=== PATIENT | male | born 1950 | race Caucasian/White ===

== ENCOUNTER 2018-01-04 07:38 | Day surgery (SDC) | payer OTHER ==
[~2018-01-04 07:38] MED LIST: NS 1000 ML 1,000 ML ONE
[2018-01-04] MEDS ORDERED: TETRACAINE 0.5% OPHTH 1 DOSE AFFEYE ONE ×4 (08:15→11:26)
[2018-01-04] MEDS ORDERED: VIGAMOX 0.5% OPHTH 1 DOSE AFFEYE ONE ×6 (08:20→11:38)
[2018-01-04] MEDS ORDERED: PROLENSA OPHTH 1 DOSE AFFEYE ONE (08:31)
[2018-01-04] MEDS ORDERED: ALPHAGAN-P OPHTH 1 DOSE AFFEYE ONE (08:32)
[2018-01-04] MEDS ORDERED: CYCLOGYL 1% OPHTH 1 DOSE OP ONE ×3 (08:33→08:35)
[2018-01-04] MEDS ORDERED: MYDRIACIL OPHTH 1 DOSE AFFEYE ONE ×3 (08:33→08:35)
[2018-01-04] MEDS ORDERED: AK-DILATE 2.5% OPHTH 1 DOSE OP ONE ×3 (08:33→08:35)
[2018-01-04] MEDS ORDERED: ADRENALINE CHL INJ IJ ONE ×2 (11:16→11:26)
[2018-01-04] MEDS ORDERED: XYLOCAINE-MPF 1% IJ ONE ×2 (11:16→11:26)
[2018-01-04] MEDS ORDERED: BETADINE OPHTH SOLN 5% EACHEYE ONE (11:16)
[2018-01-04] MEDS ORDERED: DUOVISC IO ONE ×2 (11:16→11:26)
[2018-01-04] MEDS ORDERED: BSS OPHTH (PLAIN) 500 ML with VANCOMYCIN HCL 500 MG VIAL 25 MG, ADRENALINE CHL INJ 1 MG IR ONE ×6 (11:17)
[2018-01-04] MEDS ORDERED: VERSED ONE (13:47)
[2018-01-04 15:07] VITALS: BP 123/78
== END 2018-01-04 11:38 | disposition home or self-care (01) ==
LOC: SURG1 07:38
PROVIDERS: ATTEND Ophthalmology
PROC: 08DJ3ZZ Extraction of Right Lens, Percutaneous Approach (ICD-10-PCS; principal; 2018-01-04 11:45)
PROC: 08RJ3JZ Replacement of Right Lens with Synthetic Substitute, Percutaneous Approach (ICD-10-PCS; principal; 2018-01-04 11:45)
DX: H25.11 Age-related nuclear cataract, right eye (principal); H25.011 Cortical age-related cataract, right eye; H25.041 Posterior subcapsular polar age-related cataract, right eye
CPT/HCPCS: A4217; J0170; J2250; J3370

== ENCOUNTER 2018-01-18 09:28 | Day surgery (SDC) | payer OTHER ==
[~2018-01-18 09:28] MED LIST changes: -NS 1000 ML 1,000 ML ONE; +VERSED ONE
[2018-01-18] MEDS ORDERED: TETRACAINE 0.5% OPHTH 1 DOSE AFFEYE ONE ×4 (12:03→14:34)
[2018-01-18] MEDS ORDERED: VIGAMOX 0.5% OPHTH 1 DOSE AFFEYE ONE ×6 (12:05→14:51)
[2018-01-18] MEDS ORDERED: NS 500 ML IV 500 ML IV ONE (12:15)
[2018-01-18] MEDS ORDERED: PROLENSA OPHTH 1 DOSE AFFEYE ONE (12:17)
[2018-01-18] MEDS ORDERED: ALPHAGAN-P OPHTH 1 DOSE AFFEYE ONE (12:18)
[2018-01-18] MEDS ORDERED: CYCLOGYL 1% OPHTH 1 DOSE OP ONE ×4 (12:20→12:30)
[2018-01-18] MEDS ORDERED: MYDRIACIL OPHTH 1 DOSE AFFEYE ONE ×4 (12:20→12:30)
[2018-01-18] MEDS ORDERED: AK-DILATE 2.5% OPHTH 1 DOSE OP ONE ×4 (12:20→12:30)
[2018-01-18] MEDS ORDERED: BETADINE OPHTH SOLN 5% EACHEYE ONE (14:25)
[2018-01-18] MEDS ORDERED: ADRENALINE CHL INJ IJ ONE ×2 (14:28→14:34)
[2018-01-18] MEDS ORDERED: XYLOCAINE-MPF 1% IJ ONE ×2 (14:28→14:34)
[2018-01-18] MEDS ORDERED: DUOVISC IO ONE ×2 (14:28→14:34)
[2018-01-18] MEDS ORDERED: BSS OPHTH (PLAIN) 500 ML with VANCOMYCIN HCL 500 MG VIAL 25 MG, ADRENALINE CHL INJ 1 MG IR ONE ×6 (14:29)
[2018-01-18 16:51] VITALS: BP 128/80
== END 2018-01-18 15:15 | disposition home or self-care (01) ==
LOC: SURG1 09:28
PROVIDERS: ATTEND Ophthalmology
PROC: 08RK3JZ Replacement of Left Lens with Synthetic Substitute, Percutaneous Approach (ICD-10-PCS; principal; 2018-01-18 18:45)
PROC: 08DK3ZZ Extraction of Left Lens, Percutaneous Approach (ICD-10-PCS; principal; 2018-01-18 18:45)
DX: H25.12 Age-related nuclear cataract, left eye (principal); H25.012 Cortical age-related cataract, left eye; H25.042 Posterior subcapsular polar age-related cataract, left eye
CPT/HCPCS: A4217; J0170; J2250; J3370

== ENCOUNTER 2022-04-03 09:01 | Inpatient (IN) ==
[2022-04-03] MEDS: DILAUDID INJ IVP PRN ×4 (11:03→21:00)
[2022-04-03] MEDS: LR 1,000 ML IV 1,000 ML IV SCH ×3 (11:03→19:04)
[2022-04-03] MEDS: ZOFRAN INJ 4 MG VIAL IVP PRN ×2 (11:04→18:09)
[2022-04-03 11:21] VITALS: BMI 30.7
--- NOTE | 2022-04-03 14:43 | DR.H&P ---
H&P History & Physical for Day of: H&P Date: 04/03/22 Chief Complaint Chief Complaint: Abdominal pain, nausea and vomiting Allergies Allergies Allergy/AdvReac Type Severity Reaction Status Date / Time No Known Drug Allergies Allergy Verified 01/04/18 08:55 History of Present Illness History of Present Illness: 71 year old man who presented to the emergency room in [facility] complaining of abdominal pain, nausea and vomiting. He was evaluated there laboratory values of amylase greater than 3300, lipase greater than 8000 , and CT scan of the abdomen consistent with cholelithiasis and pancreatitis ( i.e. gallstone pancreatitis) with total bilirubin elevated at 2.6, Alk. phos of 207 and BUN/Cr =33/2.5. Past Medical History Past Medical History: Gout and Hypertension Additional Medical History: neuropathy of LE. Family History Family Medical History: Diabetes Mellitus, Cancer, [place] and Hypertension Social History Does patient currently use any type of tobacco product: No Have you used tobacco products in the last 12 months: No Type of Tobacco Use: None Does any household member use tobacco: No Alcohol Use: None Drug Use: None Medications Home Medications: No Known Drug Allergies Allergy (Verified 01/04/18 08:55) CONTINUE taking the following medications allopurinol 300 mg tablet 300 mg PO DAILY 04/03/22 [History] alprazolam 0.25 mg tablet 0.25 mg PO TID 04/03/22 [History] amlodipine 5 mg tablet 5 mg PO DAILY 04/03/22 [History] citalopram 20 mg tablet 30 mg PO DAILY 04/03/22 [History] fenofibrate 160 mg tablet 160 mg PO HS 04/03/22 [History] finasteride 5 mg tablet 5 mg PO DAILY 04/03/22 [History] gabapentin 600 mg tablet 600 mg PO BID 04/03/22 [History] primidone 250 mg tablet 250 mg PO TID 04/03/22 [History] tizanidine 4 mg tablet 4 mg PO BID 04/03/22 [History] Labs Labs: K+= 3.2 BUN/Cr= 33/2.5.Amylase= 3305, Lipase > 8000, T.bili= 2.4, , Alk Phos= 207 (N) , Hgb=18,7 WBC=15.5 Review of Systems Constitutional: See HPI Eyes: No Symptoms Reported ENT: No Symptoms Reported Respiratory: No Symptoms Reported Cardiovascular: No Symptoms Reported Gastrointestinal: See HPI Genitourinary: No Symptoms Reported Musculoskeletal: No Symptoms Reported Skin: No Symptoms Reported Neurological: No Symptoms Reported Physical Exam Vital Signs: Pulse Rate 96 Respiratory Rate 21 Blood Pressure 128/80 O2 Sat by Pulse Oximetry 93 Oriented: Other (Patient arrived in significant pain and now sedated after receiving IV Dialudid, Reported by yuniely to previously being awake, alert and oriented to time , person and place.) Eyes: Normal Ear: negative Normal ( Overall decreased hearing both eyes) Nose: Normal Throat: Normal Respiratory: Clear Throughout Cardiovascular: Normal : Other (urine dark, this and labs consitent with dehydration and sequestion of fluid. ) Assessment/Plan (1) Acute gallstone pancreatitis: Narrative Support Text: Hydration, pain control, routine labs to include CMP< CBC, Amylase, Lipase. Patient will need to have resolution of the gallstone pancreatitis and then will plan laproscopic cholecystectomy and cholangiogram Status: Acute (2) Gout: Narrative Support Text: usual meds Status: Acute (3) Hypertension: Narrative Support Text: Will start antihypertensives except HCTZ and he is significantly volume depleted . Status: Acute (4) Neuropathy: Narrative Support Text: acknowledge Status: Acute (5) Profound hearing loss: Narrative Support Text: acknowledge Status: Acute Review H&P Reviewed: Yes Patient was examined?: Yes
[2022-04-03] MEDS ORDERED: XANAX PO PRN (16:55)
[2022-04-03] MEDS ORDERED: ZOFRAN INJ 4 MG VIAL IVP PRN (16:58)
[2022-04-03] MEDS ORDERED: ANTIVERT TAB 25 MG PO PRN (16:58)
[2022-04-03] MEDS ORDERED: NS 1,000 ML IV 1,000 ML IV ONE ×2 (17:41→22:21)
[2022-04-03] MEDS: ZANAFLEX PO SCH (21:00)
[2022-04-03 21:12] LABS: BILIRUBIN,URINE 3+ (NEGATIVE); BLOOD/HEMOGLOBIN,URINE 4+ (NEGATIVE); GLUCOSE, URINE NEGATIVE (NEGATIVE); KETONES,URINE 1+ (NEGATIVE); LEUKOCYTE ESTERASE ,URINE 1+ (NEGATIVE); NITRITES,URINE NEGATIVE (NEGATIVE); PROTEIN,URINE 3+ (NEGATIVE); UROBILINOGEN,URINE 2+ (NORMAL)
[2022-04-03 21:26] LABS: COLOR,URINE AMBER (YELLOW)
[2022-04-03 21:27] LABS: APPEARANCE,URINE HAZY (CLEAR)
[2022-04-03 21:28] LABS: BACTERIA,URINE 2+ /HPF (NEGATIVE); COARSE GRANULAR CASTS,URINE MODERATE /HPF (NEGATIVE); SQUAMOUS EPITHELIAL CELL,UR RARE /HPF (NEGATIVE); TRANSITIONAL EPI CELLS,URINE MODERATE /HPF (NEGATIVE)
[2022-04-03] MEDS: NEURONTIN TAB 600 MG PO SCH (21:28)
[2022-04-03 21:29] LABS: OTHER CASTS, URINE FEW /LPF (NEGATIVE)
[2022-04-03] MEDS ORDERED: DILAUDID INJ IM ONE (22:21)
[2022-04-03] MEDS ORDERED: NS 1,000 ML IV 1,000 ML ONE (22:25)
[2022-04-03] MEDS ORDERED: DILAUDID INJ IVP ONE (22:34)
[2022-04-03] MEDS ORDERED: CARDIZEM INJ 50 MG VIAL IVP ONE (23:59)
[2022-04-04] MEDS ORDERED: DILTIAZEM 125mg/125mL-0.7%NACL 125 MG/125 ML PLAST..BAG IV PRN (00:01)
[2022-04-04] MEDS: DILAUDID INJ IVP PRN ×2 (00:55→03:55)
[2022-04-04 04:33] LABS: BASOPHILS % (AUTO) 0.1 % (0.2-1.0); EOSINOPHILS % (AUTO) 0.1 % (0.9-2.9); HEMATOCRIT 55.5 % (42.0-54.0); HEMOGLOBIN 18.7 g/dL (13.5-18.0); LYMPHOCYTES # (AUTO) 0.8 X10^3/uL (1.3-2.9); LYMPHOCYTES % (AUTO) 5.8 % (21.0-51.0); MEAN CORPUSCULAR HEMOGLOBIN 31.9 pg (27.0-34.0); MEAN CORPUSCULAR HGB CONC 33.7 g/dL (33.0-35.0); MEAN CORPUSCULAR VOLUME 94.8 fL (80.0-100.0); MEAN PLATELET VOLUME 9.5 fL (7.4-11.0); MONOCYTES # (AUTO) 1.4 x10^3/uL (0.3-0.8); MONOCYTES % (AUTO) 10.1 % (0.0-13.0); NEUTROPHILS # (AUTO) 11.5 x10^3/uL (2.2-4.8); NEUTROPHILS % (AUTO) 83.9 % (42.0-75.0); RED BLOOD COUNT 5.85 X10^6/uL (4.7-6.0); RED CELL DISTRIBUTION WIDTH 14.7 % (11.6-16.5); WHITE BLOOD COUNT 13.7 X10^3/uL (3.6-10.0)
[2022-04-04 05:12] LABS: ALBUMIN 2.7 g/dL (3.4-5.0); CALCIUM 7.7 mg/dL (8.5-10.1); CARBON DIOXIDE 17.4 mmol/L (21-32); COR CA(FOR HYPOALB) 8.7 mg/dL (8.5-10.1); CREATININE 4.51 mg/dL (0.70-1.30)
[2022-04-04] MEDS: LR 1,000 ML IV 1,000 ML IV SCH (05:29)
[2022-04-04 05:52] LABS: BAND NEUTROPHILS % 19 % (0-10); METAMYELOCYTES % 2; PLATELET MORPHOLOGY COMMENT NORMAL (NORMAL)
[2022-04-04] MEDS: NEURONTIN TAB 600 MG PO SCH ×2 (06:29→14:26)
[2022-04-04] MEDS ORDERED: NS 1,000 ML IV 1,000 ML IV ONE ×3 (06:35→11:01)
[2022-04-04] MEDS ORDERED: NS 1,000 ML IV 1,000 ML ONE ×2 (06:38→08:13)
[2022-04-04 06:40] LABS: ABG BASE EXCESS -16.7 mmol/L (-2.0-2.0)
[2022-04-04 06:41] LABS: ABG HCO3 14.8 mmol/L (22-26)
[2022-04-04 06:42] LABS: ABG ALLEN TEST POS
[2022-04-04] MEDS ORDERED: ROMAZICON INJ 1 MG IVP ONE (06:58)
[2022-04-04] MEDS ORDERED: NARCAN INJ IVP ONE (06:58)
[2022-04-04] MEDS ORDERED: ROMAZICON INJ 1 MG ONE (07:00)
[2022-04-04] MEDS ORDERED: NARCAN INJ ONE (07:01)
[2022-04-04 07:23] LABS: CKMB % 1.4 % (<4); CREATINE KINASE MB 5.7 ng/mL (0-4.0)
[2022-04-04] MEDS ORDERED: ATIVAN INJ 2 MG VIAL IVP ONE (08:04)
[2022-04-04] MEDS ORDERED: SODIUM BICARBONATE 8.4% INJ ADULT IVP ONE ×3 (08:05→13:17)
[2022-04-04] MEDS ORDERED: DOPAMINE IV PREMIX 400 MG/250 ML 400 MG/250 ML BAG IV PRN (08:05)
[2022-04-04] MEDS ORDERED: SODIUM BICARBONATE 8.4% INJ ADULT ONE ×2 (08:14→09:39)
[2022-04-04] MEDS ORDERED: NS 250 ML IV 250 ML IV ONE ×3 (08:16→18:47)
[2022-04-04] MEDS ORDERED: NORVASC TAB 5 MG PO SCH (09:00)
[2022-04-04] MEDS ORDERED: ZYLOPRIM PO SCH (09:00)
[2022-04-04] MEDS ORDERED: LOVENOX INJ 40 MG SYR SC SCH (09:00)
[2022-04-04] MEDS ORDERED: TRICOR TAB 145 MG PO SCH (09:00)
[2022-04-04] MEDS ORDERED: CELEXA PO SCH (09:00)
[2022-04-04] MEDS ORDERED: MOBIC TAB 15 MG PO SCH (09:00)
[2022-04-04] MEDS ORDERED: LOVENOX INJ 30 MG SYR SC SCH (09:00)
[2022-04-04] MEDS ORDERED: ZESTRIL TAB 20 MG PO SCH (09:00)
[2022-04-04] MEDS ORDERED: PROSCAR PO SCH (09:00)
[2022-04-04 09:15] LABS: ABG BASE EXCESS -15.2 mmol/L (-2.0-2.0)
[2022-04-04 09:16] LABS: ABG HCO3 14.3 mmol/L (22-26)
[2022-04-04] MEDS: ZANAFLEX PO SCH (10:22)
[2022-04-04] MEDS ORDERED: NS 1,000 ML IV 1,000 ML IV SCH (12:00)
--- NOTE | 2022-04-04 12:04 | RAD ---
HISTORYTachypnea hypertensionSTUDYAP [id number] nt transverse cardiac diameter, accentuated by nonstandard technical factors, elevated diaphragm and low lung volumes. Mild bibasal atelectasis. There is no evidence for pneumonia, pneumothorax or pleural fluid.IMPRESSIONStable cardiac prominence with bibasal linear pulmonary densities consistent with atelectasis, accentuated by pulmonary underinflation.Electronically signed by: KATIE KIMBALL (Apr 04, 2022 12:03:07)
[2022-04-04 13:09] LABS: ABG BASE EXCESS -12.7 mmol/L (-2.0-2.0)
[2022-04-04 13:10] LABS: ABG HCO3 16.3 mmol/L (22-26)
[2022-04-04] MEDS ORDERED: ALBUMIN HUMAN 25%- 100 ML 100 ML IV ONE (13:17)
[2022-04-04] MEDS ORDERED: LASIX IVP ONE (13:18)
[2022-04-04] MEDS ORDERED: ALBUMIN HUMAN 25%- 100 ML 100 ML ONE (13:54)
[2022-04-04] MEDS ORDERED: ALBUMIN HUMAN 25%- 100 ML 200 ML IV ONE (13:57)
[2022-04-04] MEDS ORDERED: DIPRIVAN VIAL ONE (16:45)
[2022-04-04] MEDS ORDERED: VERSED ONE (16:45)
[2022-04-04] MEDS ORDERED: KETAMINE HCL ONE (16:45)
[2022-04-04] MEDS ORDERED: ZOSYN VIAL 2.25 GRAMS 2.25 G in NS 100 ML IV 100 ML IV SCH (17:00)
[2022-04-04] MEDS ORDERED: DIPRIVAN PREMIX 1 GRAM IV 1,000 MG/100 ML VIAL IV PRN (17:10)
--- NOTE | 2022-04-04 17:16 | NOTE.SOAP ---
Soap Note Note for Day of Date of Exam: 04/04/22 Subjective Data Subjective Data: Since admission for gallstone pancreatitis he has required significant pain medication. He had transient atrial fibrillation with rapid ventricular rate which resolved spontaneously . Despite significant intravenous hydration his kidneys have not been functioning and creatinine has risen greater than 4. 5. Amylase [place] is [place] [address] have conitinued to rise . Total bilirubin was 2. 4 and is now 9. 4 . Early this morning he had been given IV pain medication and had hypoventilation with subsequent blood gas consistent with both respiratory acidosis and metabolic acidosis. That is somwhat better after placing on BiPAP, decreasing his pain medications, reversing them as necessary and giving him sodium bicarbonate intravenously. He continues to be t achypnic with no urine output. I have made arrangements to transfer him to [facility] in [place] . His accepting physicain is Dr. Trey Dozier. He will be electively intubated prior to transport . Objective Data Pulse Rate: 98 Respiratory Rate: 52 Blood Pressure: 94/59 O2 Sat by Pulse Oximetry: 94 Objective Data: tachypnic, unresponsive, abdomen distended but not tender ,hemoglobin equals 18. 7 , creatinine equals 4. 5 , potassium equals 5. 1 ,white blood cell count [id number] Assessment Assessment: Gallstone pancreatitis with respiratory and renal failure. Plan Plan: Patietn to be intubated and transported to higher level of care in [facility] . Accepting physician is Dr. Trey Dozier.
--- NOTE | 2022-04-04 17:29 | W.DIS.FURT ---
Summary of Discharge Discharge Summary of Date Date of Exam: 04/04/22 Admission Date Date of Admission: 04/03/22 Admission Diagnosis Hospital Course: This patient is a 71 year old male who began having abdominal pain approximately 5 days prior to admission. He is known to have gallstones. He was seen locally at the hospital in [facility] and was diagnosed with gallstone pancreatitis. At that time his total bilirubin was 2. 4, Amylase 3306 and lipase greater than 8000. He was admitted to my service in [facility] and despite significant intravenous hydration has continued to deteriorate now with evidence of renal failure and respiratory failure. He had transient atrial fibrillation with rapid ventricular response which resolved spontaneously . His troponin is elevated but the sensitivity of the new test in this regard is suspect. He will require a higher level of care and will be transported by ambulance to [facility] in [facility]. The accepting county bailiff is Dr. Trey Dozier. He will be electively in tubated . Currently on renal dose dopamine and has been started on IV zosyn Vital Signs: Vital Signs (72 hours) 04/04/22 17:16 04/03/22 11:03 04/03/22 10:25 Temperature Pulse Rate 98 H Respiratory Rate 52 H 18 Blood Pressure 94/59 O2 Sat by Pulse Oximetry 94 L Oxygen Delivery Method Nasal Cannula Oxygen Flow Rate 2 FIO2% 04/03/22 11:16 04/03/22 11:33 04/03/22 11:30 Temperature 98 F Pulse Rate 99 H 100 H Respiratory Rate 19 18 18 Blood Pressure O2 Sat by Pulse Oximetry 96 96 Oxygen Delivery Method Oxygen Flow Rate FIO2% 04/03/22 11:45 04/03/22 12:00 04/03/22 12:15 Temperature 98.3 F Pulse Rate 101 H 100 H 100 H Respiratory Rate 18 18 17 Blood Pressure O2 Sat by Pulse Oximetry 96 96 96 Oxygen Delivery Method Oxygen Flow Rate FIO2% 04/03/22 12:30 04/03/22 12:45 04/03/22 13:00 Temperature Pulse Rate 97 H 97 H 97 H Respiratory Rate 25 H 19 34 H Blood Pressure O2 Sat by Pulse Oximetry 96 96 96 Oxygen Delivery Method Oxygen Flow Rate FIO2% 04/03/22 13:15 04/03/22 10:20 04/03/22 13:30 Temperature Pulse Rate 98 H 97 H Respiratory Rate 20 32 H Blood Pressure O2 Sat by Pulse Oximetry 96 96 Oxygen Delivery Method Nasal Cannula Oxygen Flow Rate 3 FIO2% 32 04/03/22 13:45 04/03/22 14:00 04/03/22 15:10 Temperature Pulse Rate 96 H 96 H Respiratory Rate 25 H 21 18 Blood Pressure O2 Sat by Pulse Oximetry 96 93 L Oxygen Delivery Method Oxygen Flow Rate FIO2% 04/03/22 14:15 04/03/22 14:30 04/03/22 14:45 Temperature Pulse Rate 94 H 97 H 97 H Respiratory Rate 20 21 19 Blood Pressure O2 Sat by Pulse Oximetry 93 L 94 L 93 L Oxygen Delivery Method Oxygen Flow Rate FIO2% 04/03/22 14:56 04/03/22 14:56 04/03/22 15:00 Temperature Pulse Rate 101 H Respiratory Rate 29 H Blood Pressure 137/87 130/68 O2 Sat by Pulse Oximetry 92 L Oxygen Delivery Method Oxygen Flow Rate FIO2% 04/03/22 15:00 04/03/22 15:15 04/03/22 15:30 Temperature Pulse Rate 100 H 97 H 98 H Respiratory Rate 28 H 19 20 Blood Pressure O2 Sat by Pulse Oximetry 100 91 L 92 L Oxygen Delivery Method Oxygen Flow Rate FIO2% 04/03/22 15:45 04/03/22 16:00 04/03/22 16:00 Temperature 98.9 F Pulse Rate 97 H 97 H Respiratory Rate 16 17 Blood Pressure 129/71 O2 Sat by Pulse Oximetry 92 L 91 L Oxygen Delivery Method Oxygen Flow Rate FIO2% 04/03/22 16:15 04/03/22 16:30 04/03/22 16:45 Temperature Pulse Rate 97 H 97 H 96 H Respiratory Rate 17 19 20 Blood Pressure O2 Sat by Pulse Oximetry 91 L 91 L 93 L Oxygen Delivery Method Oxygen Flow Rate FIO2% 04/03/22 17:00 04/03/22 17:00 04/03/22 18:08 Temperature Pulse Rate 97 H Respiratory Rate 20 18 Blood Pressure 118/70 O2 Sat by Pulse Oximetry 94 L Oxygen Delivery Method Oxygen Flow Rate FIO2% 04/03/22 15:40 04/03/22 17:15 04/03/22 17:30 Temperature Pulse Rate 97 H 98 H Respiratory Rate 18 20 28 H Blood Pressure O2 Sat by Pulse Oximetry 95 95 Oxygen Delivery Method Oxygen Flow Rate FIO2% 04/03/22 17:45 04/03/22 18:00 04/03/22 18:00 Temperature Pulse Rate 99 H 103 H Respiratory Rate 33 H 31 H Blood Pressure 105/60 O2 Sat by Pulse Oximetry 94 L 94 L Oxygen Delivery Method Oxygen Flow Rate FIO2% 04/03/22 18:38 04/03/22 20:53 04/03/22 21:00 Temperature Pulse Rate Respiratory Rate 18 20 Blood Pressure O2 Sat by Pulse Oximetry Oxygen Delivery Method Nasal Cannula Oxygen Flow Rate 3 FIO2% 32 04/03/22 22:36 04/03/22 19:00 04/03/22 19:00 Temperature Pulse Rate 97 H Respiratory Rate 20 18 Blood Pressure 138/83 O2 Sat by Pulse Oximetry 92 L Oxygen Delivery Method Nasal Cannula Oxygen Flow Rate 2 FIO2% 04/03/22 20:00 04/03/22 21:00 04/03/22 22:00 Temperature 97.7 F Pulse Rate 99 H 106 H 145 H Respiratory Rate 18 34 H 31 H Blood Pressure 124/84 145/72 116/84 O2 Sat by Pulse Oximetry 94 L 93 L 86 L Oxygen Delivery Method Oxygen Flow Rate FIO2% 04/03/22 23:00 04/03/22 21:30 04/03/22 23:06 Temperature Pulse Rate 159 H Respiratory Rate 22 20 20 Blood Pressure 114/69 O2 Sat by Pulse Oximetry 93 L Oxygen Delivery Method Oxygen Flow Rate FIO2% 04/04/22 00:55 04/04/22 00:00 04/04/22 01:00 Temperature 98.0 F Pulse Rate 166 H 100 H Respiratory Rate 20 24 30 H Blood Pressure 123/88 124/69 O2 Sat by Pulse Oximetry 93 L 90 L Oxygen Delivery Method Oxygen Flow Rate FIO2% 04/04/22 02:00 04/04/22 03:00 04/04/22 01:25 Temperature Pulse Rate 104 H 106 H Respiratory Rate 40 H 27 H 24 Blood Pressure 123/87 97/56 O2 Sat by Pulse Oximetry 90 L 88 L Oxygen Delivery Method Oxygen Flow Rate FIO2% 04/04/22 03:55 04/04/22 05:19 04/04/22 04:00 Temperature 98.1 F Pulse Rate 109 H Respiratory Rate 24 34 H Blood Pressure 109/80 O2 Sat by Pulse Oximetry 85 L Oxygen Delivery Method Oxy Mask Oxygen Flow Rate 10 FIO2% 60 04/04/22 05:00 04/04/22 04:25 04/04/22 06:55 Temperature Pulse Rate 107 H Respiratory Rate 24 20 Blood Pressure 81/50 O2 Sat by Pulse Oximetry 96 Oxygen Delivery Method Oxy Mask Oxygen Flow Rate 12 FIO2% 60 04/04/22 06:57 04/04/22 06:00 04/04/22 07:00 Temperature Pulse Rate 103 H Respiratory Rate 24 Blood Pressure 87/51 O2 Sat by Pulse Oximetry 95 Oxygen Delivery Method Bi-pap Oxy Mask Oxy Mask Oxygen Flow Rate 10 10 FIO2% 60 04/04/22 08:32 04/04/22 08:32 04/04/22 07:00 Temperature Pulse Rate 102 H Respiratory Rate 24 Blood Pressure O2 Sat by Pulse Oximetry 96 Oxygen Delivery Method Bi-pap Oxygen Flow Rate FIO2% 60 60 04/04/22 07:14 04/04/22 07:14 04/04/22 07:15 Temperature Pulse Rate 100 H 100 H Respiratory Rate 45 H 47 H Blood Pressure 159/63 O2 Sat by Pulse Oximetry 97 96 Oxygen Delivery Method Oxygen Flow Rate FIO2% 04/04/22 07:16 04/04/22 07:16 04/04/22 07:21 Temperature Pulse Rate 100 H 99 H Respiratory Rate 46 H 45 H Blood Pressure 114/58 O2 Sat by Pulse Oximetry 96 96 Oxygen Delivery Method Oxygen Flow Rate FIO2% 04/04/22 07:21 04/04/22 07:30 04/04/22 07:30 Temperature Pulse Rate 96 H Respiratory Rate 45 H Blood Pressure 99/61 106/59 O2 Sat by Pulse Oximetry 96 Oxygen Delivery Method Oxygen Flow Rate FIO2% 04/04/22 07:40 04/04/22 07:40 04/04/22 07:45 Temperature Pulse Rate 96 H 96 H Respiratory Rate 47 H 49 H Blood Pressure 104/57 O2 Sat by Pulse Oximetry 96 98 Oxygen Delivery Method Oxygen Flow Rate FIO2% 04/04/22 07:50 04/04/22 07:50 04/04/22 08:00 Temperature Pulse Rate 96 H Respiratory Rate 49 H Blood Pressure 103/60 97/61 O2 Sat by Pulse Oximetry 99 Oxygen Delivery Method Oxygen Flow Rate FIO2% 04/04/22 08:00 04/04/22 08:10 04/04/22 08:10 Temperature 99.0 F Pulse Rate 97 H 97 H Respiratory Rate 48 H 49 H Blood Pressure 100/61 O2 Sat by Pulse Oximetry 99 97 Oxygen Delivery Method Oxygen Flow Rate FIO2% 04/04/22 08:15 04/04/22 08:20 04/04/22 08:20 Temperature Pulse Rate 97 H 96 H Respiratory Rate 48 H 49 H Blood Pressure 85/57 O2 Sat by Pulse Oximetry 97 98 Oxygen Delivery Method Oxygen Flow Rate FIO2% 04/04/22 08:30 04/04/22 08:30 04/04/22 08:40 Temperature Pulse Rate 99 H 99 H Respiratory Rate 48 H 46 H Blood Pressure 103/59 O2 Sat by Pulse Oximetry 97 95 Oxygen Delivery Method Oxygen Flow Rate FIO2% 04/04/22 08:40 04/04/22 08:45 04/04/22 08:50 Temperature Pulse Rate 100 H Respiratory Rate 48 H Blood Pressure 101/59 119/59 O2 Sat by Pulse Oximetry 96 Oxygen Delivery Method Oxygen Flow Rate FIO2% 04/04/22 08:50 04/04/22 08:59 04/04/22 09:00 Temperature Pulse Rate 100 H 100 H Respiratory Rate 47 H 44 H Blood Pressure 112/56 O2 Sat by Pulse Oximetry 93 L 95 Oxygen Delivery Method Oxygen Flow Rate FIO2% 04/04/22 09:00 04/04/22 09:10 04/04/22 09:10 Temperature Pulse Rate 100 H 100 H Respiratory Rate 49 H 48 H Blood Pressure 113/56 O2 Sat by Pulse Oximetry 95 94 L Oxygen Delivery Method Oxygen Flow Rate FIO2% 04/04/22 09:15 04/04/22 09:20 04/04/22 09:20 Temperature Pulse Rate 99 H 99 H Respiratory Rate 41 H 48 H Blood Pressure 115/56 O2 Sat by Pulse Oximetry 95 96 Oxygen Delivery Method Oxygen Flow Rate FIO2% 04/04/22 09:30 04/04/22 09:30 04/04/22 09:40 Temperature Pulse Rate 100 H Respiratory Rate 50 H Blood Pressure 116/60 101/57 O2 Sat by Pulse Oximetry 96 Oxygen Delivery Method Oxygen Flow Rate FIO2% 04/04/22 09:40 04/04/22 09:45 04/04/22 09:50 Temperature Pulse Rate 101 H 101 H Respiratory Rate 47 H 49 H Blood Pressure 124/61 O2 Sat by Pulse Oximetry 95 95 Oxygen Delivery Method Oxygen Flow Rate FIO2% 04/04/22 09:50 04/04/22 10:00 04/04/22 10:00 Temperature Pulse Rate 101 H 101 H Respiratory Rate 46 H 50 H Blood Pressure 108/58 O2 Sat by Pulse Oximetry 93 L 96 Oxygen Delivery Method Oxygen Flow Rate FIO2% 04/04/22 10:10 04/04/22 10:10 04/04/22 10:15 Temperature Pulse Rate 101 H 101 H Respiratory Rate 50 H 46 H Blood Pressure 96/65 O2 Sat by Pulse Oximetry 94 L 95 Oxygen Delivery Method Oxygen Flow Rate FIO2% 04/04/22 10:20 04/04/22 10:20 04/04/22 10:30 Temperature Pulse Rate 101 H 103 H Respiratory Rate 51 H 51 H Blood Pressure 93/59 O2 Sat by Pulse Oximetry 94 L 95 Oxygen Delivery Method Oxygen Flow Rate FIO2% 04/04/22 10:31 04/04/22 10:31 04/04/22 10:40 Temperature Pulse Rate 102 H Respiratory Rate 45 H Blood Pressure 112/58 90/52 O2 Sat by Pulse Oximetry 97 Oxygen Delivery Method Oxygen Flow Rate FIO2% 04/04/22 10:40 04/04/22 10:45 04/04/22 10:50 Temperature Pulse Rate 103 H 102 H Respiratory Rate 48 H 50 H Blood Pressure 90/53 O2 Sat by Pulse Oximetry 95 94 L Oxygen Delivery Method Oxygen Flow Rate FIO2% 04/04/22 10:50 04/04/22 11:00 04/04/22 11:00 Temperature Pulse Rate 103 H 103 H Respiratory Rate 47 H 46 H Blood Pressure 95/56 O2 Sat by Pulse Oximetry 94 L 94 L Oxygen Delivery Method Bi-pap Oxygen Flow Rate FIO2% 04/04/22 11:10 04/04/22 11:10 04/04/22 11:15 Temperature Pulse Rate 101 H 101 H Respiratory Rate 50 H 47 H Blood Pressure 96/57 O2 Sat by Pulse Oximetry 93 L 96 Oxygen Delivery Method Oxygen Flow Rate FIO2% 04/04/22 11:20 04/04/22 11:20 04/04/22 11:30 Temperature Pulse Rate 100 H Respiratory Rate 48 H Blood Pressure 97/60 100/59 O2 Sat by Pulse Oximetry 94 L Oxygen Delivery Method Oxygen Flow Rate FIO2% 04/04/22 11:30 04/04/22 11:40 04/04/22 11:40 Temperature Pulse Rate 100 H 98 H Respiratory Rate 49 H 46 H Blood Pressure 92/64 O2 Sat by Pulse Oximetry 94 L 95 Oxygen Delivery Method Oxygen Flow Rate FIO2% 04/04/22 11:45 04/04/22 11:50 04/04/22 11:50 Temperature Pulse Rate 97 H 98 H Respiratory Rate 48 H 49 H Blood Pressure 95/63 O2 Sat by Pulse Oximetry 95 95 Oxygen Delivery Method Oxygen Flow Rate FIO2% 04/04/22 12:00 04/04/22 12:00 04/04/22 12:10 Temperature 99.4 F Pulse Rate 99 H 98 H Respiratory Rate 46 H 49 H Blood Pressure 97/64 O2 Sat by Pulse Oximetry 95 94 L Oxygen Delivery Method Bi-pap Oxygen Flow Rate FIO2% 75 04/04/22 12:10 04/04/22 12:15 04/04/22 12:20 Temperature Pulse Rate 98 H 100 H Respiratory Rate 45 H 47 H Blood Pressure 97/55 O2 Sat by Pulse Oximetry 97 94 L Oxygen Delivery Method Oxygen Flow Rate FIO2% 04/04/22 12:20 04/04/22 12:30 04/04/22 12:30 Temperature Pulse Rate 98 H Respiratory Rate 47 H Blood Pressure 92/60 90/56 O2 Sat by Pulse Oximetry 95 Oxygen Delivery Method Oxygen Flow Rate FIO2% 04/04/22 12:39 04/04/22 12:40 04/04/22 13:30 Temperature Pulse Rate 97 H Respiratory Rate 46 H Blood Pressure 96/58 O2 Sat by Pulse Oximetry 95 Oxygen Delivery Method Oxygen Flow Rate FIO2% 100 04/04/22 12:40 04/04/22 12:45 04/04/22 12:50 Temperature Pulse Rate 97 H 98 H 97 H Respiratory Rate 44 H 45 H 44 H Blood Pressure O2 Sat by Pulse Oximetry 95 95 95 Oxygen Delivery Method Oxygen Flow Rate FIO2% 04/04/22 12:50 04/04/22 13:00 04/04/22 13:06 Temperature Pulse Rate 98 H Respiratory Rate 48 H Blood Pressure 97/55 67/38 O2 Sat by Pulse Oximetry 94 L Oxygen Delivery Method Bi-pap Oxygen Flow Rate FIO2% 75 04/04/22 13:06 04/04/22 13:10 04/04/22 13:10 Temperature Pulse Rate 97 H 97 H Respiratory Rate 43 H 45 H Blood Pressure 91/52 O2 Sat by Pulse Oximetry 94 L 95 Oxygen Delivery Method Oxygen Flow Rate FIO2% 04/04/22 13:15 04/04/22 13:15 04/04/22 13:30 Temperature Pulse Rate 97 H Respiratory Rate 43 H Blood Pressure 82/51 81/55 O2 Sat by Pulse Oximetry 96 Oxygen Delivery Method Oxygen Flow Rate FIO2% 04/04/22 13:30 04/04/22 13:45 04/04/22 14:00 Temperature Pulse Rate 97 H 99 H 99 H Respiratory Rate 43 H 51 H 44 H Blood Pressure O2 Sat by Pulse Oximetry 97 91 L 92 L Oxygen Delivery Method Bi-pap Oxygen Flow Rate FIO2% 100 04/04/22 14:07 04/04/22 14:07 04/04/22 14:15 Temperature Pulse Rate 96 H Respiratory Rate 43 H Blood Pressure 82/52 88/52 O2 Sat by Pulse Oximetry 93 L Oxygen Delivery Method Oxygen Flow Rate FIO2% 04/04/22 14:15 04/04/22 14:30 04/04/22 14:30 Temperature Pulse Rate 100 H 100 H Respiratory Rate 47 H 51 H Blood Pressure 90/55 O2 Sat by Pulse Oximetry 91 L 92 L Oxygen Delivery Method Bi-pap Oxygen Flow Rate FIO2% 100 04/04/22 14:45 04/04/22 14:45 04/04/22 15:00 Temperature Pulse Rate 99 H Respiratory Rate 51 H Blood Pressure 90/58 94/59 O2 Sat by Pulse Oximetry 92 L Oxygen Delivery Method Oxygen Flow Rate FIO2% 04/04/22 15:00 Temperature Pulse Rate 98 H Respiratory Rate 52 H Blood Pressure O2 Sat by Pulse Oximetry 94 L Oxygen Delivery Method Oxygen Flow Rate FIO2% Labs: Laboratory Last Values WBC 13.7 X10^3/uL (3.6-10.0) H 04/04/22 03:21 RBC 5.85 X10^6/uL (4.7-6.0) 04/04/22 03:21 Hgb 18.7 g/dL (13.5-18.0) H 04/04/22 03:21 Hct 55.5 % (42.0-54.0) H 04/04/22 03:21 MCV 94.8 fL (80.0-100.0) 04/04/22 03:21 MCH 31.9 pg (27.0-34.0) 04/04/22 03:21 MCHC 33.7 g/dL (33.0-35.0) 04/04/22 03:21 RDW 14.7 % (11.6-16.5) 04/04/22 03:21 Plt Count 163 X10^3/uL (150.0-450.0) 04/04/22 03:21 Plt Count Comment Adequate (ADEQUATE) 04/04/22 03:21 MPV 9.5 fL (7.4-11.0) 04/04/22 03:21 Neut % (Auto) 83.9 % (42.0-75.0) H 04/04/22 03:21 Lymph % (Auto) 5.8 % (21.0-51.0) L 04/04/22 03:21 [place] % (Auto) 10.1 % (0.0-13.0) 04/04/22 03:21 Eos % (Auto) 0.1 % (0.9-2.9) L 04/04/22 03:21 Baso % (Auto) 0.1 % (0.2-1.0) L 04/04/22 03:21 Neut # (Auto) 11.5 x10^3/uL (2.2-4.8) H 04/04/22 03:21 Lymph # (Auto) 0.8 X10^3/uL (1.3-2.9) L 04/04/22 03:21 [place] # (Auto) 1.4 x10^3/uL (0.3-0.8) H 04/04/22 03:21 Eos # (Auto) 0.0 x10^3/uL (0.0-0.2) 04/04/22 03:21 Baso # (Auto) 0.0 X10^3/uL (0.0-0.1) 04/04/22 03:21 Absolute Nucleated RBC 0.1 /100WBC 04/04/22 03:21 Total Counted 100 04/04/22 03:21 Neutrophils % (Manual) 59 % (39-76) 04/04/22 03:21 Band Neutrophils % 19 % (0-10) H 04/04/22 03:21 Lymphocytes % (Manual) 7 % (13-43) L 04/04/22 03:21 Monocytes % (Manual) 13 % (4-9) H 04/04/22 03:21 Metamyelocytes % 2 04/04/22 03:21 Plt Morphology Comment Normal (NORMAL) 04/04/22 03:21 RBC Morphology Normal (NORMAL) 04/04/22 03:21 Sample Site Rb 04/04/22 13:04 ABG pH 7.130 (7.35-7.45) L* 04/04/22 13:04 ABG pCO2 49.0 mmHg (35.0-45.0) H 04/04/22 13:04 ABG pO2 66.0 mmHg (80.0-100.0) L 04/04/22 13:04 ABG HCO3 16.3 mmol/L (22-26) L* 04/04/22 13:04 ABG O2 Saturation 85.0 % (90-100) L 04/04/22 13:04 ABG Base Excess -12.7 mmol/L (-2.0-2.0) L 04/04/22 13:04 Rafael Test N/a 04/04/22 13:04 A-a Gradient 408.0 mmHg 04/04/22 13:04 FiO2 75.0 04/04/22 13:04 Blood Gas Comments Umer well cb 04/04/22 13:04 Sodium 145 mmol/L (136-145) 04/04/22 03:21 Corrected Sodium 146 mmol/L (136-145) H 04/04/22 03:21 Potassium 5.1 mmol/L (3.5-5.1) 04/04/22 03:21 Chloride 109 mmol/L (98-107) H 04/04/22 03:21 Carbon Dioxide 17.4 mmol/L (21-32) L 04/04/22 03:21 BUN 53 mg/dL (7-18) H 04/04/22 03:21 Creatinine 4.51 mg/dL (0.70-1.30) H 04/04/22 03:21 Est GFR (MDRD) Af Amer 17 (>60) L 04/04/22 03:21 Est GFR (MDRD) Non-Af 14 (>60) L 04/04/22 03:21 Glucose 129 mg/dL (65-99) H 04/04/22 03:21 POC Glucose (mg/dL) 106 mg/dL (65-99) H 04/04/22 06:25 Calcium 7.7 mg/dL (8.5-10.1) L 04/04/22 03:21 Corrected Calcium 8.7 mg/dL (8.5-10.1) 04/04/22 03:21 Total Bilirubin 9.40 mg/dL (0.2-1.0) H 04/04/22 03:21 AST 140 Units/L (15-37) H 04/04/22 03:21 ALT 149 Units/L (12-78) H 04/04/22 03:21 Alkaline Phosphatase 70 Units/L (46-116) 04/04/22 03:21 Creatine Kinase 414 Units/L (39-308) H 04/04/22 06:50 CK-MB (CK-2) 5.7 ng/mL (0-4.0) H 04/04/22 06:50 CK/CKMB % Calc 1.4 % (<4) 04/04/22 06:50 Troponin I High Sens 136.6 ng/L (4.0-60.0) H* 04/04/22 06:50 B-Natriuretic Peptide 291 pg/mL (0-79) H 04/04/22 06:50 Total Protein 6.0 g/dL (6.4-8.2) L 04/04/22 03:21 Albumin 2.7 g/dL (3.4-5.0) L 04/04/22 03:21 Globulin 3.3 g/dL (2.5-4.5) 04/04/22 03:21 Albumin/Globulin Ratio 0.8 Ratio (1.1-2.1) L 04/04/22 03:21 Amylase 857 Units/L (25-115) H 04/04/22 03:21 Lipase 60529 Units/L (73-393) H 04/04/22 03:21 Specimen Type Catherized urine 04/03/22 21:00 Urine Color Abril (YELLOW) 04/03/22 21:00 Urine Appearance Hazy (CLEAR) 04/03/22 21:00 Urine pH 5.0 (5.0 - 8.0) 04/03/22 21:00 Ur Specific [place] 1.020 (1.000-1.030) 04/03/22 21:00 Urine Protein 3+ (NEGATIVE) 04/03/22 21:00 Urine Glucose (UA) Negative (NEGATIVE) 04/03/22 21:00 Urine Ketones 1+ (NEGATIVE) 04/03/22 21:00 Urine Blood 4+ (NEGATIVE) 04/03/22 21:00 Urine Nitrite Negative (NEGATIVE) 04/03/22 21:00 Urine Bilirubin 3+ (NEGATIVE) 04/03/22 21:00 Urine Urobilinogen 2+ (NORMAL) 04/03/22 21:00 Ur Leukocyte Esterase 1+ (NEGATIVE) 04/03/22 21:00 Urine RBC 3-5 /HPF (0-3) A 04/03/22 21:00 Urine WBC 5-10 /HPF (0-5) A 04/03/22 21:00 Ur Squamous Epith Cells Rare /HPF (NEGATIVE) 04/03/22 21:00 Ur Transition Epith Cell Moderate /HPF (NEGATIVE) 04/03/22 21:00 Amorphous Sediment 2+ /HPF (NEGATIVE) 04/03/22 21:00 Urine Bacteria 2+ /HPF (NEGATIVE) 04/03/22 21:00 Coarse Granular Casts Moderate /HPF (NEGATIVE) 04/03/22 21:00 Other Casts Few /LPF (NEGATIVE) 04/03/22 21:00 Urine Mucus Few /HPF (NEGATIVE) 04/03/22 21:00 Ur Culture Indicated? Yes/culture set up 04/03/22 21:00 Reason For Visit: PANCREATITIS, GALLSTONES Discharge Date Discharge Date: 04/04/22 Discharge Diagnosis All Active Problems (Updated 04/03/22 @ 16:46 by Mehran Pate) Profound hearing loss (Acute) Neuropathy (Acute) Hypertension (Acute) Gout (Acute) Acute gallstone pancreatitis (Acute) Plan of Treatment: Caro tranferred to [facility] in critical condition. Now intubated . Discharge Medications Discharge Medications: No Known Drug Allergies Allergy (Verified 01/04/18 08:55) CONTINUE taking the following medications allopurinol 100 mg tablet 1 tab PO DAILY 04/03/22 [History] alprazolam 0.25 mg tablet 0.25 mg PO TID 04/03/22 [History] amlodipine 5 mg tablet 5 mg PO DAILY 04/03/22 [History] aspirin 81 mg chewable tablet 81 mg PO DAILY 04/03/22 [History] cholecalciferol (vitamin D3) 50 mcg (2,000 unit) tablet (Vitamin D3) 50 mcg PO DAILY 04/03/22 [History] citalopram 20 mg tablet 30 mg PO DAILY 04/03/22 [History] fenofibrate 160 mg tablet 160 mg PO HS 04/03/22 [History] finasteride 5 mg tablet 5 mg PO DAILY 04/03/22 [History] gabapentin 600 mg tablet 600 mg PO BID 04/03/22 [History] lisinopril 20 mg-hydrochlorothiazide 12.5 mg tablet 1 tab PO DAILY 04/03/22 [History] meclizine 25 mg tablet 25 mg PO TID PRN Nausea 04/03/22 [History] ondansetron 8 mg disintegrating tablet 8 mg PO Q8H PRN Nausea 04/03/22 [History] primidone 250 mg tablet 250 mg PO TID 04/03/22 [History] tizanidine 4 mg tablet 4 mg PO BID 04/03/22 [History] Above HOME MEDICATIONS, CURRENTLY ON IV ZOSYN, IV DOPAMINE, IV PROPAFOL Discharge Disposition Assessment: Gallstone pancreatitis with respitatory and renal deterioration. HIgh risk of complications and . Discharge Plan Discharge Plan Hospital Course: This patient is a 71 year old male who began having abdominal pain approximately 5 days prior to admission. He is known to have gallstones. He was seen locally at the hospital in [facility] and was diagnosed with gallstone pancreatitis. At that time his total bilirubin was 2. 4, Amylase 3306 and lipase greater than 8000. He was admitted to my service in [facility] and despite significant intravenous hydration has continued to deteriorate now with evidence of renal failure and respiratory failure. He had transient atrial fibrillation with rapid ventricular response which resolved spontaneously . His troponin is elevated but the sensitivity of the new test in this regard is suspect. He will require a higher level of care and will be transported by ambulance to [facility] in [facility]. The accepting county bailiff is Dr. Trey Dozier. He will be electively in tubated . Currently on renal dose dopamine and has been started on IV zosyn Patient Disposition: 66 XFER CRIT ACCESS HOSP INP Condition: Stable Health Concerns: Post Hospitalization: new medications and changes needed to prevent readmission or further decline. Pt educated and given instructions on all concerns. Plan of Treatment: Aubrien tranferred to [facility] in critical condition. Now intubated . Assessment: Gallstone pancreatitis with respitatory and renal deterioration. HIgh risk of complications and . Prescriptions: Continued gabapentin 600 mg tablet 600 mg PO BID Label Comments: TAKE 1 TABLET BY MOUTH TWICE DAILY tizanidine 4 mg tablet 4 mg PO BID Label Comments: TAKE 1 TABLET BY MOUTH TWICE DAILY alprazolam 0.25 mg tablet 0.25 mg PO TID Label Comments: TAKE 1 TABLET BY MOUTH EVERY 8 HOURS NEEDED citalopram 20 mg tablet 30 mg PO DAILY primidone 250 mg tablet 250 mg PO TID Label Comments: TAKE 1 TABLET BY MOUTH THREE TIMES DAILY amlodipine 5 mg tablet 5 mg PO DAILY Label Comments: TAKE 1 TABLET BY MOUTH ONCE DAILY finasteride 5 mg Tablet 5 mg PO DAILY fenofibrate 160 mg tablet 160 mg PO HS lisinopril-hydrochlorothiazide 20-12.5 mg tablet 1 tab PO DAILY allopurinol 100 mg tablet 1 tab PO DAILY Label Comments: TAKE 1 TABLET BY MOUTH ONCE DAILY ondansetron [Zofran ODT] 8 mg Tablet,Disintegrating 8 mg PO Q8H PRN (Reason: Nausea) meclizine 25 mg Tablet 25 mg PO TID PRN (Reason: Nausea) aspirin 81 mg Tablet,Chewable 81 mg PO DAILY cholecalciferol (vitamin D3) [Vitamin D3] 50 mcg (2,000 unit) Tablet 50 mcg PO DAILY Orders to Discharge Patient Discharge Orders: Discharge by Transfer to Outside Facility (Routine); Ordered 04/04/22 Ordered By: Mehran Pate Follow ups/Referrals Follow ups/Referrals: ÁNGELA GONZALEZ [Primary Care Provider] - 1 WEEK Instructions Stand Alone Forms: Excuse From Work or School, Precautions for COVID19, [facility], Patient Portal, Social Distancing
--- NOTE | 2022-04-04 17:34 | RAD ---
HISTORYTUBE PLACEMENT ^ PHYSICIAN AWAITING READING FOR PT TRANSFERSTUDYCHEST, 1 [id number]/2022 at 11:08 a.m.FINDINGSImaging was repeated at 4:53 p.m.. Endotracheal tube has its tip is in good position above the neto. Heart size is enlarged. There is stranding in both lungs, left more so than right. There are small bilateral pleural effusions.IMPRESSION1. Endotracheal tube in good position. 2. Bibasilar opacity and small bilateral effusions.Electronically signed by: Thaddeus Hunt (Apr 04, 2022 17:32:29)
[2022-04-04 17:54] LABS: ABG BASE EXCESS -11.1 mmol/L (-2.0-2.0)
[2022-04-04 17:55] LABS: ABG ALLEN TEST POS
[2022-04-04 18:42] VITALS: BP 90/51
[2022-04-04] MEDS ORDERED: ADRENALINE CHL INJ ONE (18:51)
== END 2022-04-04 19:15 | disposition critical access hospital (66) | DRG 438 ==
LOC: ICU → OBSVTOIN 10:11
PROVIDERS: ADMIT Surgery; ATTEND Surgery